=== PATIENT | female | born 1940 ===

== ENCOUNTER 2020-09-04 19:27 | Inpatient (IN) | payer MEDICARE ==
[~2020-09-04] VITALS: Ht 167 cm; Wt 71.1 kg
[2020-09-04] MEDS ORDERED: NS IV 1000 ML 1,000 ML ONE (22:51)
--- NOTE | 2020-09-04 23:19 | Tele-ICU Consult ---
History of Present Illness History of Present Illness Date Seen by Provider: Sep 04, 2020 Time Seen by Provider: 23:14 Date of Admission 80 yo F admitted from OSH. Has weakness, LGI bleed, BRB, taking Eliquis for a fib, Has COPD, surgery to see in am, Hb was 14, no hypotension WBC 15k Hx of GI bleed 18 years ago, Hx of bleeding ulcer, needed 4U of blood No associated pain but has been having diarrhea lately Allergies and Home Medications Allergies Coded Allergies: Penicillins (Verified Allergy, Unknown, 09/04/20) Sulfa (Sulfonamide Antibiotics) (Verified Allergy, Unknown, 09/04/20) Tetanus Vaccines and Toxoid (Verified Allergy, Unknown, 09/04/20) acetaminophen (Verified Allergy, Unknown, 09/04/20) cephalexin (Verified Allergy, Unknown, 09/04/20) ibuprofen (Verified Allergy, Unknown, 09/04/20) warfarin (Verified Allergy, Unknown, 09/04/20) Past Medical/Social/Family Hx Patient Social History Tobacco Use?: No Smoking Status: Never a Smoker Smokeless Tobacco Frequency: Never a User Use of E-Cig and/or Vaping dev: No Substance use?: No Alcohol Use?: No Pt stated abuse/neglect: No Immunizations Up To Date Influenza Vaccine Up-to-Date: No; Not Current Current Status status: No Advance Directives: No Communicates: Verbally Primary Language: Venezuelan Preferred Spoken Language: Venezuelan Is interpretation needed?: No Sensory deficits: Vision impairment Implanted or Applied Medical D: Orthopedic hardware Review of Systems Gastrointestinal: diarrhea Sepsis Event Evaluation Height, Weight, BMI Height: '" Weight: lbs. oz. kg; 25.09 BMI Method: Exam Exam Patient acknowledged, consented, and participated in this virtual visit which was conducted using real time audio/video Height & Weight Height: '" Weight: lbs. oz. kg; 25.09 BMI Method: Cardiovascular: Regular Rate, Rhythm Gastrointestinal: normal bowel sounds, non tender, soft Neurologic/Psychiatric: Alert, Oriented x3 Assessment/Plan Assessment/Plan BPB per rectum, surgery to see re:colonoscopy, will monitor for further bleeding and monitor Hb JACQUI CHARLES MD Sep 04, 2020 23:19
[2020-09-04] MEDS: NS IV 1000 ML 1,000 ML IV SCH (23:50)
[2020-09-05] MEDS ORDERED: RT-ALBUTEROL SULF 2.5 MG/3 ML PRE-MIX VIAL INH PRN (00:45)
[2020-09-05] MEDS ORDERED: RT-ALBUTEROL SULF 2.5 MG/3 ML PRE-MIX VIAL INH SCH (02:00)
[2020-09-05 04:16] LABS: BASOPHILS # (AUTO) 0.1 10^3/uL (0.0-0.1); BASOPHILS % (AUTO) 1 % (0-10); EOSINOPHILS # (AUTO) 0.1 10^3/uL (0.0-0.3); EOSINOPHILS % (AUTO) 1 % (0-10); HEMATOCRIT 46 % (35-52); HEMOGLOBIN 14.9 g/dL (11.5-16.0); LYMPHOCYTES % (AUTO) 14 % (12-44); MEAN CORPUSCULAR HEMOGLOBIN 31 pg (25-34); MEAN CORPUSCULAR HGB CONC 33 g/dL (32-36); MEAN CORPUSCULAR VOLUME 96 fL (80-99); MEAN PLATELET VOLUME 10.8 fL (9.0-12.2); MONOCYTES # (AUTO) 0.9 10^3/uL (0.0-1.0); MONOCYTES % (AUTO) 6 % (0-12); NEUTROPHILS # (AUTO) 11.5 10^3/uL (1.8-7.8); NEUTROPHILS % (AUTO) 79 % (42-75); PLATELET COUNT 210 10^3/uL (130-400); WHITE BLOOD COUNT 14.5 10^3/uL (4.3-11.0)
[2020-09-05] MEDS ORDERED: POTASSIUM CL 10MEQ/50ML IVPB 50 ML IV SCH (06:00)
[2020-09-05] MEDS ORDERED: MAGNESIUM 1 GM/100 ML IVPB 100 ML IV SCH (06:00)
[2020-09-05] MEDS ORDERED: KCL 20 MEQ TAB (K-DUR) PO SCH (06:00)
[2020-09-05] MEDS: NS IV 1000 ML 1,000 ML IV SCH ×3 (06:23→17:33)
[2020-09-05 06:57] LABS: CHLORIDE 103 MMOL/L (98-107); POTASSIUM 3.9 MMOL/L (3.6-5.0); SODIUM 134 MMOL/L (135-145)
[2020-09-05 06:58] LABS: CALCIUM 7.7 MG/DL (8.5-10.1)
[2020-09-05 06:59] LABS: GLUCOSE 96 MG/DL (70-105)
[2020-09-05 07:00] LABS: CARBON DIOXIDE 21 MMOL/L (21-32)
[2020-09-05 07:03] LABS: CREATININE SERUM 0.69 MG/DL (0.60-1.30); GFR ESTIMATED > 60; PHOSPHORUS 2.6 MG/DL (2.3-4.7)
[2020-09-05 07:04] LABS: BUN/CREATININE RATIO 16
[2020-09-05 07:05] LABS: MAGNESIUM 1.6 MG/DL (1.6-2.4)
[2020-09-05] MEDS ORDERED: RT-BUDESONIDE NEBS 0.5 MG/2ML (PULMICORT) AMP INH SCH (08:00)
[2020-09-05] MEDS ORDERED: ARFORMOTEROL 15 MCG/2 ML (BROVANA) INH SOLUTIION IH SCH (08:00)
--- NOTE | 2020-09-05 08:38 | Tele-ICU Progress Note ---
Subjective Date Seen by a Provider: Sep 05, 2020 Time Seen by a Provider: 08:33 Subjective/Events-last exam Patient with history of atrial fibrillation on anticoagulant therapy admitted with bright red blood per rectum. Her hemoglobin is stable at the. She continues to have bleeding per rectum but it is slowed down per her. Patient has a mild cramps in the abdomen. General surgeon was consulted for possible colonoscopy. She denies any dizziness. I have made a video visit and discussed with the patient as well as the bedside RN. There is no previous history of peptic ulcer disease or gastritis or any previous history of gastrointestinal bleeding. No history of cirrhosis of the liver. Sepsis Event Evaluation Height, Weight, BMI Height: '" Weight: lbs. oz. kg; 25.09 BMI Method: Exam Exam Patient acknowledged, consented, and participated in this virtual visit which was conducted using real time audio/video Vital Signs Date Time Temp Pulse Resp B/P (MAP) Pulse Ox O2 Delivery O2 Flow Rate FiO2 09/05/20 08:12 98 Room Air 09/05/20 08:10 36.9 09/05/20 08:00 87 19 98 Room Air 09/05/20 07:00 93 19 149/93 (111) 97 Room Air 09/05/20 07:00 113 09/05/20 06:00 84 12 151/84 (106) 96 Room Air 09/05/20 05:00 89 20 151/97 (115) 95 Room Air 09/05/20 04:00 Room Air 09/05/20 04:00 86 17 151/96 (114) 95 Room Air 09/05/20 03:00 98 20 144/94 (111) 94 Room Air 09/05/20 02:00 96 12 153/96 (115) 95 Room Air 09/05/20 01:00 91 09/05/20 01:00 91 18 138/83 (101) 93 Room Air 09/05/20 00:41 98 21 09/05/20 00:00 109 12 149/112 (124) 95 Room Air 09/05/20 00:00 Room Air 09/04/20 23:45 101 10 152/94 (113) 96 Room Air 09/04/20 23:30 108 20 172/96 (121) 92 Room Air 09/04/20 23:15 96 12 177/119 (138) 96 Room Air 09/04/20 23:00 102 12 170/115 (133) 93 Room Air 09/04/20 22:54 123 09/04/20 22:53 36.4 112 16 180/106 (130) 95 Room Air I & O 09/05/20 07:00 Intake Total 0 ml Output Total 600 ml Balance -600 ml Height & Weight Height: '" Weight: lbs. oz. kg; 25.09 BMI Method: General Appearance: No Apparent Distress Cardiovascular: Regular Rate, Rhythm Gastrointestinal: normal bowel sounds, non tender, soft Neurologic/Psychiatric: Alert, Oriented x3 Other comments ros per attending Results Lab Laboratory Tests 09/05/20 03:35 09/05/20 05:58 Meds reviewed Assessment/Plan Assessment/Plan 1. Lower GI bleeding. 2. History of chronic anticoagulation 3. History of atrial fibrillation. Recommendations 1. We will start on IV Protonix in case patient has any component of upper GI source. 2. We will repeat a CBC this a.m. 3. General surgery consultation has been requested. 4. Discussed with the patient and bedside RN Time spent with patient (mins): 25 JULIA PASTOR MD Sep 05, 2020 08:38
[2020-09-05] MEDS: DIGOXIN 0.25 MG (LANOXIN) TAB PO SCH (08:41)
[2020-09-05] MEDS: PANTOPRAZOLE 40 MG (PROTONIX) VIAL IV SCH (08:57)
[2020-09-05] MEDS ORDERED: APIX2.5T PO (10:46)
[2020-09-05] MEDS ORDERED: MULT-985 PO (10:46)
[2020-09-05] MEDS ORDERED: DILT120C53 PO (10:46)
[2020-09-05] MEDS ORDERED: LISI10TA25 PO (10:46)
[2020-09-05] MEDS ORDERED: RT-ALBUINH INH (10:46)
[2020-09-05] MEDS ORDERED: DIGO250T3 PO ×2 (10:46)
[2020-09-05] MEDS ORDERED: BUDE10.2 IH ×2 (10:46→10:53)
[2020-09-05] MEDS ORDERED: BUDE10.22 IH (10:49)
--- NOTE | 2020-09-05 11:11 | History & Physical-Hospitalist ---
ELIZABETH SIERRA MED STUDENT 09/05/20 1111: History of Present Illness HPI/Chief Complaint This is a 80 YO female with history of COPD, HTN, and Afib who came to the [place] [facility] for bloody BM's. Pt states yesterday morning when she was getting her hair done, she became dizzy and went to the bathroom, where she had non-bloody diarrhea. Later in the afternoon she had a BM that was gross blood with some clots in it. She later had another bloody BM and went to the [place] [facility] after that. Hbg there was stable at 14.4. Beds were full in [place], so she was transf ered here. She is on Eliquis for her Afib. She had an episode of a bleeding ulcer about 15 years ago that required transfusion of 4 units of blood. Had a colonoscopy a few years ago that was negative. No history of hemorrhoids, but over the past couple of weeks, has had some epsodes of constipation and straining with BM's. No fever, chills, nausea, vomiting, or abdominal pain. Says she had a BM this morning with blood in it. Source: patient, RN/MD, other ([place] [facility] records) Exam Limitations: no limitations Date Seen 09/05/20 Time Seen by a Provider: 08:45 Attending Physician Heri Zelaya MD PCP Referring Physician Date of Admission Sep 04, 2020 at 22:47 Home Medications & Allergies Home Medications Reviewed patient Home Medication Reconciliation performed by pharmacy medication reconciliations indoor plant technician and/or nursing. Patients Allergies have been reviewed. Allergies Allergies Coded Allergies Penicillins (Verified Allergy, Unknown, 09/04/20) Sulfa (Sulfonamide Antibiotics) (Verified Allergy, Unknown, 09/04/20) Tetanus Vaccines and Toxoid (Verified Allergy, Unknown, 09/04/20) acetaminophen (Verified Allergy, Unknown, 09/04/20) cephalexin (Verified Allergy, Unknown, 09/04/20) ibuprofen (Verified Allergy, Unknown, 09/04/20) warfarin (Verified Allergy, Unknown, 09/04/20) Past Pllzozh-Mdyajt-Hzswrl Hx Patient Social History Tobacco Use?: No Smoking Status: Never a Smoker Smokeless Tobacco Frequency: Never a User Use of E-Cig and/or Vaping dev: No Substance use?: No Alcohol Use?: No Pt feels they are or have been: No Current Status status: No Advance Directives: No Communicates: Verbally Primary Language: Portuguese Preferred Spoken Language: Portuguese Is interpretation needed?: No Sensory deficits: Vision impairment Implanted or Applied Medical D: Orthopedic hardware Past Medical History COPD Atrial Fibrillation, Hypertension Review of Systems Constitutional: No chills, No fever EENTM: no symptoms reported Respiratory: No cough, No dyspnea on exertion Cardiovascular: No chest pain Gastrointestinal: diarrhea; No vomiting Genitourinary: no symptoms reported Musculoskeletal: no symptoms reported Skin: no symptoms reported Psychiatric/Neurological: No Symptoms Reported All Other Systems Reviewed Negative Unless Noted: Yes (Negative excepted noted.) Physical Exam Physical Exam Vital Signs Vital Signs - First Documented 09/04/20 09/05/20 22:53 00:41 Temp 36.4 Pulse 112 Resp 16 B/P (MAP) 180/106 (130) Pulse Ox 95 O2 Delivery Room Air FiO2 21 Capillary Refill : Height, Weight, BMI Height: '" Weight: lbs. oz. kg; 25.09 BMI Method: General Appearance: No Apparent Distress, WD/WN Respiratory: Lungs Clear, Normal Breath Sounds, No Accessory Muscle Use, No Respiratory Distress Cardiovascular: No Murmur, Irregularly Irregular, Other (borderline tachycardic) Gastrointestinal: Non Tender, Soft Extremity: Non Tender, No Pedal Edema Neurologic/Psychiatric: Alert, Oriented x3, No Motor/Sensory Deficits, Normal Mood/Affect Skin: Normal Color, Warm/Dry Results Results/Procedures Labs Laboratory Tests 09/05/20 03:35 09/05/20 05:58 09/05/20 11:25 Patient resulted labs reviewed. Assessment/Plan Admission Diagnosis GI bleed Admission Status: Inpatient Order (span 2 midnights) Assessment and Plan GI bleed consult Dr. Dill hgb stable, continue to monitor Atrial fibrillation hold Eliquis continue home cardiazem and digoxin COPD HTN Protonix for GI prophylaxis SHERIE ALCANTAR MD 09/05/20 1150: Past Stkbphh-Xhsfqn-Lbfokj Hx Family Medical History No Pertinent Family Hx Assessment/Plan Admission Diagnosis Admission Status: Inpatient Order (span 2 midnights) Reason for Inpatient Admission: GI bleed requiring endoscopic evaluation Assessment and Plan New onset bright red blood per rectum, ongoing since admission. Hemoglobin within normal limits, no indication for transfusion at this time. Continue to monitor. Surgery consulted, await plan regarding endoscopic evaluation. Diagnosis/Problems Diagnosis/Problems (1) BRBPR (bright red blood per rectum) Status: Acute (2) Afib Status: Chronic Qualifiers: Atrial fibrillation type: permanent Qualified Codes: I48.21 - Permanent atrial fibrillation (3) HTN (hypertension) Status: Chronic Qualifiers: Hypertension type: essential hypertension Qualified Codes: I10 - Essential (primary) hypertension (4) COPD (chronic obstructive pulmonary disease) Status: Chronic Qualifiers: COPD type: chronic bronchitis Chronic bronchitis type: unspecified Qualified Codes: J42 - Unspecified chronic bronchitis Supervisory-Addendum Brief Verification & Attestation Participated in pt care: history, MDM, physical Personally performed: exam, history, MDM, supervision of care Care discussed with: Medical Student Procedures: n/a Results interpretation: Verified all documentation A medical student performed and documented this service. I then reviewed and verified all information documented by the medical student and made modifications to such information, when appropriate. I personally performed a history, physical exam, and performed medical decision making. ELIZABETH SIERRA MED STUDENT Sep 05, 2020 11:11 SHERIE ALCANTAR MD Sep 05, 2020 11:50
[2020-09-05 11:40] LABS: HEMATOCRIT 42 % (35-52); HEMOGLOBIN 14.2 g/dL (11.5-16.0); MEAN CORPUSCULAR HEMOGLOBIN 33 pg (25-34); MEAN CORPUSCULAR HGB CONC 34 g/dL (32-36); MEAN CORPUSCULAR VOLUME 97 fL (80-99); MEAN PLATELET VOLUME 10.5 fL (9.0-12.2); PLATELET COUNT 229 10^3/uL (130-400); WHITE BLOOD COUNT 13.4 10^3/uL (4.3-11.0)
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
[2020-09-05] MEDS ORDERED: MELATONIN 3 MG TABLET PO PRN (22:15)
[2020-09-05] MEDS ORDERED: ANTACID SUSP 30 ML UDC (MYLANTA) PO PRN (22:15)
[2020-09-05] MEDS ORDERED: ONDANSETRON 4 MG/2 ML (SDV) Z0FRAN IV PRN (22:15)
[2020-09-05] MEDS ORDERED: ONDANSETRON 4 MG (ZOFRAN) ORAL DISSOLVE TAB PO PRN (22:15)
[2020-09-06] MEDS: NS IV 1000 ML 1,000 ML IV SCH ×3 (05:34→23:25)
[2020-09-06 06:55] LABS: BASOPHILS # (AUTO) 0.1 10^3/uL (0.0-0.1); BASOPHILS % (AUTO) 0 % (0-10); EOSINOPHILS # (AUTO) 0.3 10^3/uL (0.0-0.3); EOSINOPHILS % (AUTO) 2 % (0-10); HEMATOCRIT 45 % (35-52); HEMOGLOBIN 14.8 g/dL (11.5-16.0); LYMPHOCYTES # (AUTO) 2.3 10^3/uL (1.0-4.0); LYMPHOCYTES % (AUTO) 17 % (12-44); MEAN CORPUSCULAR HEMOGLOBIN 32 pg (25-34); MEAN CORPUSCULAR HGB CONC 33 g/dL (32-36); MEAN CORPUSCULAR VOLUME 96 fL (80-99); MEAN PLATELET VOLUME 10.9 fL (9.0-12.2); MONOCYTES # (AUTO) 1.1 10^3/uL (0.0-1.0); MONOCYTES % (AUTO) 8 % (0-12); NEUTROPHILS # (AUTO) 9.5 10^3/uL (1.8-7.8); NEUTROPHILS % (AUTO) 72 % (42-75); PLATELET COUNT 258 10^3/uL (130-400); WHITE BLOOD COUNT 13.2 10^3/uL (4.3-11.0)
[2020-09-06 07:23] LABS: CHLORIDE 106 MMOL/L (98-107); SODIUM 138 MMOL/L (135-145)
[2020-09-06 07:24] LABS: CALCIUM 7.9 MG/DL (8.5-10.1)
[2020-09-06 07:25] LABS: GLUCOSE 90 MG/DL (70-105)
[2020-09-06 07:26] LABS: CARBON DIOXIDE 20 MMOL/L (21-32)
[2020-09-06 07:28] LABS: PHOSPHORUS 2.1 MG/DL (2.3-4.7)
[2020-09-06 07:29] LABS: CREATININE SERUM 0.67 MG/DL (0.60-1.30); GFR ESTIMATED > 60
[2020-09-06 07:30] LABS: BUN/CREATININE RATIO 15
[2020-09-06 07:31] LABS: MAGNESIUM 1.6 MG/DL (1.6-2.4)
[2020-09-06] MEDS: RT-BUDESONIDE NEBS 0.5 MG/2ML (PULMICORT) AMP INH SCH (07:42)
[2020-09-06] MEDS ORDERED: POT PHOS/NA PHOS (K-PHOS NEUTRAL) PO ONE (08:00)
[2020-09-06] MEDS: PANTOPRAZOLE 40 MG (PROTONIX) VIAL IV SCH (08:17)
[2020-09-06] MEDS: MAGNESIUM 1 GM/100 ML IVPB 100 ML IV SCH ×2 (08:17→10:41)
[2020-09-06] MEDS: DIGOXIN 0.25 MG (LANOXIN) TAB PO SCH (08:18)
--- NOTE | 2020-09-06 09:26 | Progress Note - Surgery ---
LEONARD MONTOYA MED STUDENT 09/06/20 0926: Subjective Date Seen by a Provider: Sep 06, 2020 Time Seen by a Provider: 08:20 Subjective/Events-last exam Patient is 80 year old female being followed for bloody diarrhea. Today she reports she is feeling "fine". She reports no pain, nause, vomitting, changes in urinary habits. She states her last bm "yesterday" did not have visible blood. She did notice a small amount of bloody drainage this morning. Objective Exam Vital Signs Date Time Temp Pulse Resp B/P (MAP) Pulse Ox O2 Delivery O2 Flow Rate FiO2 09/06/20 07:25 37.2 70 22 120/76 (91) 96 Room Air 09/06/20 04:37 36.4 83 18 139/70 (93) 95 Room Air 09/06/20 00:00 36.8 95 Room Air 09/05/20 23:15 98 25 148/73 (98) Room Air 09/05/20 21:00 96 Room Air 09/05/20 19:34 37.0 74 18 143/79 (100) 94 Room Air 09/05/20 19:00 84 09/05/20 17:00 77 17 152/81 (104) 98 Room Air 09/05/20 16:20 97 Room Air 09/05/20 16:00 73 17 97 Room Air 09/05/20 15:51 36.8 09/05/20 15:00 79 18 129/74 (92) 97 Room Air 09/05/20 14:00 65 27 138/78 (98) 92 Room Air 09/05/20 13:00 101 20 141/86 (104) 91 Room Air 09/05/20 13:00 78 09/05/20 12:00 95 Room Air 09/05/20 12:00 76 17 141/77 (98) 95 Room Air 09/05/20 11:44 36.4 09/05/20 11:00 93 15 147/84 (105) 91 Room Air 09/05/20 10:00 92 19 146/103 (117) 95 Room Air I & O 09/06/20 07:00 Intake Total 3025 ml Output Total 1550 ml Balance 1475 ml Capillary Refill : General Appearance: No Apparent Distress, WD/WN Respiratory: Lungs Clear, Normal Breath Sounds, No Accessory Muscle Use, No Respiratory Distress Cardiovascular: No Murmur, Irregularly Irregular Peripheral Pulses: 2+ Radial Pulses (R), 2+ Radial Pulses (L) Gastrointestinal: normal bowel sounds, non tender, soft, no organomegaly, no pulsatile mass Extremity: Non Tender, No Pedal Edema Neurologic/Psychiatric: Alert, Oriented x3, No Motor/Sensory Deficits, Normal Mood/Affect Skin: Normal Color, Warm/Dry Results Lab Laboratory Tests 09/05/20 11:25: White Blood Count 13.4H, Red Blood Count 4.37, Hemoglobin 14.2, Hematocrit 42, Mean Corpuscular Volume 97, Mean Corpuscular Hemoglobin 33, Mean Corpuscular Hemoglobin Concent 34, Red Cell Distribution Width 12.9, Platelet Count 229, Mean Platelet Volume 10.5 09/06/20 06:35: White Blood Count 13.2H, Red Blood Count 4.66, Hemoglobin 14.8, Hematocrit 45, Mean Corpuscular Volume 96, Mean Corpuscular Hemoglobin 32, Mean Corpuscular Hemoglobin Concent 33, Red Cell Distribution Width 12.9, Platelet Count 258, Mean Platelet Volume 10.9, Immature Granulocyte % (Auto) 0, Neutrophils (%) (Auto) 72, Lymphocytes (%) (Auto) 17, Monocytes (%) (Auto) 8, Eosinophils (%) (Auto) 2, Basophils (%) (Auto) 0, Neutrophils # (Auto) 9.5H, Lymphocytes # (Auto) 2.3, Monocytes # (Auto) 1.1H, Eosinophils # (Auto) 0.3, Basophils # (Auto) 0.1, Immature Granulocyte # (Auto) 0.0, Sodium Level 138, Potassium Level 4.0, Chloride Level 106, Carbon Dioxide Level 20L, Anion Gap 12, Blood Urea Nitrogen 10, Creatinine 0.67, Estimat Glomerular Filtration Rate > 60, BUN/C reatinine Ratio 15, Glucose Level 90, Calcium Level 7.9L, Phosphorus Level 2.1L, Magnesium Level 1.6 Assessment/Plan Assessment/Plan Assessment/Plan Rectal bleeding diarrhea a-fib COPD Hold eliquis full diet tonight, clear liquid after midnight GI Prophylaxis Continue home meds repeat CBC/CMP am Patients hemoglobin has been stable (14.9, 14.2, 14.8 today), will recheck tomorrow, patient expressed desire for upper and lower endoscopy during this hospital stay, if possible start prep and plan for tomorrow, if not schedule out patient procedure. LB MARISCAL DO 09/06/20 1315: Subjective Time Seen by a Provider: 10:11 Subjective/Events-last exam Pt seen and examined, states no changes today and denies abdominal pain. She wants to have the endoscopies while she is in the hospital because she is worried about time delay if she goes home and tries to schedule them. Review of Systems General: No Chills, No Night Sweats Pulmonary: No Dyspnea, No Cough Cardiovascular: No: Chest Pain, Palpitations Gastrointestinal: No: Nausea, Vomiting, Abdominal Pain Objective Exam General Appearance: No Apparent Distress, WD/WN Respiratory: Lungs Clear, Normal Breath Sounds, No Accessory Muscle Use, No Respiratory Distress Cardiovascular: No Murmur, Irregularly Irregular Gastrointestinal: normal bowel sounds, non tender, soft, no organomegaly, no pulsatile mass Extremity: Non Tender, No Pedal Edema Neurologic/Psychiatric: Alert, Oriented x3 Skin: Normal Color, Warm/Dry Assessment/Plan Assessment/Plan Assessment/Plan Rectal bleeding Diarrhea Atrial Fibrillation COPD Eliquis is being held and will start colonoscopy prep today, NPO after midnight and will get consent for EGD and colonoscopy. Went over risks and complications not limited to pain, bleeding, infection and even intestinal perforation. The benefit is to hopefully determine cause of rectal bleed. GI Prophylaxis, Continue home meds. No need to repeat labs at this time. Supervisory-Addendum Brief Verification & Attestation Participated in pt care: history, MDM, physical Personally performed: exam, history, MDM, supervision of care Care discussed with: Medical Student Procedures: n/a Verification and Attestation of Medical Student E/M Service A medical student performed and documented this service. I then reviewed and verified all information documented by the medical student and made modifications to such information, when appropriate. I personally performed a physical exam, medical decision making and then discussed any differences between the notes and made revisions as necessary to create one note. Lb Mariscal , 09/06/20 , 13:15 LEONARD MONTOYA MED STUDENT Sep 06, 2020 09:26 LB MARISCAL DO Sep 06, 2020 13:15
--- NOTE | 2020-09-06 13:00 | Progress Note - Hospitalist ---
Subjective HPI/CC On Admission Date Seen by Provider: Sep 06, 2020 Time Seen by Provider: 10:35 Subjective/Events-last exam She is feeling better today. She had a bowel movement with no blood. She would like to proceed with endoscopies. Objective Exam Vital Signs Vital Signs Date Time Temp Pulse Resp B/P (MAP) Pulse Ox O2 Delivery O2 Flow Rate FiO2 09/06/20 11:36 36.7 77 20 158/91 (113) 93 Room Air 09/05/20 00:41 21 Capillary Refill : General Appearance: No Apparent Distress, WD/WN Respiratory: Lungs Clear, Normal Breath Sounds, No Respiratory Distress Cardiovascular: Regular Rate, Rhythm, No Edema, No Murmur Gastrointestinal: Normal Bowel Sounds, Non Tender, Soft Extremity: Normal Inspection, Non Tender, No Pedal Edema Neurologic/Psychiatric: Alert, Oriented x3, No Motor/Sensory Deficits, Normal Mood/Affect Skin: Normal Color, Warm/Dry Results/Procedures Lab Laboratory Tests 09/06/20 06:35 Patient resulted labs reviewed. Assessment/Plan Assessment and Plan Assess & Plan/Chief Complaint Hematochezia Hemoglobin normal, stable Now resolved Surgery consulted, appreciate assistance Planning for EGD/colonoscopy tomorrow Permanent atrial fibrillation Continue digoxin and diltiazem Hold Eliquis Hypertension COPD Continue home meds DVT prophylaxis: Held due to GI bleeding Diagnosis/Problems Diagnosis/Problems (1) BRBPR (bright red blood per rectum) Status: Acute (2) Afib Status: Chronic Qualifiers: Atrial fibrillation type: permanent Qualified Codes: I48.21 - Permanent atrial fibrillation (3) HTN (hypertension) Status: Chronic Qualifiers: Hypertension type: essential hypertension Qualified Codes: I10 - Essential (primary) hypertension (4) COPD (chronic obstructive pulmonary disease) Status: Chronic Qualifiers: COPD type: chronic bronchitis Chronic bronchitis type: unspecified Qualified Codes: J42 - Unspecified chronic bronchitis SHERIE ALCANTAR MD Sep 06, 2020 13:00
[2020-09-06] MEDS ORDERED: BISACODYL 5 MG (DULCOLAX) TABLET PO SCH (15:00)
[2020-09-06] MEDS ORDERED: polyethylene glycoL Bowel Prep(MIRALAX) 238 GM PO SCH (18:00)
[2020-09-07 06:46] LABS: BASOPHILS # (AUTO) 0.1 10^3/uL (0.0-0.1); BASOPHILS % (AUTO) 1 % (0-10); EOSINOPHILS # (AUTO) 0.5 10^3/uL (0.0-0.3); EOSINOPHILS % (AUTO) 5 % (0-10); HEMATOCRIT 42 % (35-52); HEMOGLOBIN 13.8 g/dL (11.5-16.0); LYMPHOCYTES # (AUTO) 1.8 10^3/uL (1.0-4.0); LYMPHOCYTES % (AUTO) 19 % (12-44); MEAN CORPUSCULAR HEMOGLOBIN 31 pg (25-34); MEAN CORPUSCULAR HGB CONC 33 g/dL (32-36); MEAN CORPUSCULAR VOLUME 95 fL (80-99); MEAN PLATELET VOLUME 11.1 fL (9.0-12.2); MONOCYTES # (AUTO) 0.8 10^3/uL (0.0-1.0); MONOCYTES % (AUTO) 9 % (0-12); NEUTROPHILS # (AUTO) 6.2 10^3/uL (1.8-7.8); NEUTROPHILS % (AUTO) 66 % (42-75); PLATELET COUNT 253 10^3/uL (130-400); WHITE BLOOD COUNT 9.4 10^3/uL (4.3-11.0)
[2020-09-07 06:51] LABS: CHLORIDE 109 MMOL/L (98-107); POTASSIUM 3.6 MMOL/L (3.6-5.0); SODIUM 139 MMOL/L (135-145)
[2020-09-07 06:52] LABS: CALCIUM 7.7 MG/DL (8.5-10.1)
[2020-09-07 06:53] LABS: GLUCOSE 93 MG/DL (70-105)
[2020-09-07 06:54] LABS: CARBON DIOXIDE 22 MMOL/L (21-32)
--- NOTE | 2020-09-07 06:54 | Progress Note - Hospitalist ---
Subjective HPI/CC On Admission Date Seen by Provider: Sep 07, 2020 Objective Exam Vital Signs Vital Signs Date Time Temp Pulse Resp B/P (MAP) Pulse Ox O2 Delivery O2 Flow Rate FiO2 09/07/20 17:26 09/07/20 15:27 95 Room Air 09/07/20 12:37 35.7 85 20 09/07/20 11:50 10 09/05/20 00:41 21 Capillary Refill : Results/Procedures Lab Laboratory Tests 09/07/20 05:44 Patient resulted labs reviewed. TRENT PARRA DO Sep 07, 2020 06:54
[2020-09-07 06:56] LABS: CREATININE SERUM 0.62 MG/DL (0.60-1.30); GFR ESTIMATED > 60; PHOSPHORUS 2.5 MG/DL (2.3-4.7)
[2020-09-07 06:57] LABS: BUN/CREATININE RATIO 8
[2020-09-07 06:59] LABS: MAGNESIUM 1.8 MG/DL (1.6-2.4)
[2020-09-07 07:02] LABS: ALBUMIN 2.7 GM/DL (3.2-4.5)
[2020-09-07 07:05] LABS: TOTAL PROTEIN 5.4 GM/DL (6.4-8.2)
[2020-09-07 07:07] LABS: BILIRUBIN,TOTAL 0.9 MG/DL (0.1-1.0)
[2020-09-07 07:10] LABS: BILIRUBIN,DIRECT 0.4 MG/DL (0.0-0.3); BILIRUBIN,INDIRECT 0.5 MG/DL
[2020-09-07] MEDS: RT-BUDESONIDE NEBS 0.5 MG/2ML (PULMICORT) AMP INH SCH (08:41)
--- NOTE | 2020-09-07 09:19 | Progress Note - Surgery ---
LEONARD MONTOYA MED STUDENT 09/07/20 0919: Subjective Date Seen by a Provider: Sep 07, 2020 Time Seen by a Provider: 07:40 Subjective/Events-last exam Patient is 80 year old female being followed for bloody diarrhea. Her only complaint this morning is she had a headache overnight and had difficulty sleeping. She has completed her prep and has been only having sips of water to keep her mouth from being "too dry". She does report some crampy abdominal pain, that has been associated with bowel movements, she reports no blood in stools. Review of Systems General: No Chills, No Night Sweats HEENT: Head Aches; No Visual Changes Pulmonary: No Dyspnea, No Cough Cardiovascular: No: Chest Pain, Palpitations Gastrointestinal: Diarrhea; No: Nausea, Vomiting Genitourinary: No Dysuria, No Frequency Musculoskeletal: other (baseline arthralgias) Neurological: No: Weakness, Numbness Objective Exam Vital Signs Date Time Temp Pulse Resp B/P (MAP) Pulse Ox O2 Delivery O2 Flow Rate FiO2 09/07/20 08:41 95 Room Air 09/07/20 07:33 36.5 89 20 134/82 (99) 96 Room Air 09/07/20 04:51 36.3 90 18 143/66 (91) 94 Room Air 09/07/20 00:01 36.3 90 18 143/66 (91) 94 Room Air 09/06/20 20:26 96 Room Air 09/06/20 19:37 35.6 85 20 137/84 (101) 96 Room Air 09/06/20 15:22 36.8 75 18 149/82 (104) 95 Room Air 09/06/20 11:36 36.7 77 20 158/91 (113) 93 Room Air I & O 09/07/20 07:00 Intake Total 2750 ml Output Total 1750 ml Balance 1000 ml Capillary Refill : General Appearance: No Apparent Distress, WD/WN Respiratory: Lungs Clear, Normal Breath Sounds, No Accessory Muscle Use, No Respiratory Distress Cardiovascular: No Murmur, Irregularly Irregular Peripheral Pulses: 2+ Radial Pulses (R), 2+ Radial Pulses (L) Gastrointestinal: non tender, soft, no organomegaly, no pulsatile mass, abnorma l bowel sounds (hyperactive) Extremity: Non Tender, No Pedal Edema Neurologic/Psychiatric: Alert, Oriented x3 Skin: Normal Color, Warm/Dry Results Lab Laboratory Tests 09/06/20 23:20: Influenza Type A (RT-PCR) Not Detected, Influenza Type B (RT-PCR) Not Detected, SARS-CoV-2 RNA (RT-PCR) Not Detected 09/07/20 05:44: White Blood Count 9.4, Red Blood Count 4.39, Hemoglobin 13.8, Hematocrit 42, Mean Corpuscular Volume 95, Mean Corpuscular Hemoglobin 31, Mean Corpuscular Hemoglobin Concent 33, Red Cell Distribution Width 12.9, Platelet Count 253, Mean Platelet Volume 11.1, Immature Granulocyte % (Auto) 0, Neutrophils (%) (Auto) 66, Lymphocytes (%) (Auto) 19, Monocytes (%) (Auto) 9, Eosinophils (%) (Auto) 5, Basophils (%) (Auto) 1, Neutrophils # (Auto) 6.2, Lymphocytes # (Auto) 1.8, Monocytes # (Auto) 0.8, Eosinophils # (Auto) 0.5H, Basophils # (Auto) 0.1, Immature Granulocyte # (Auto) 0.0, Sodium Level 139, Potassium Level 3.6, Chloride Level 109H, Carbon Dioxide Level 22, Anion Gap 8, Blood Urea Nitrogen 5L, Creatinine 0.62, Estimat Glomerular Filtration Rate > 60, BUN/Creatinine Ratio 8, Glucose Level 93, Calcium Level 7.7L, Phosphorus Level 2.5, Magnesium Level 1.8, Total Bilirubin 0.9, Direct Bilirubin 0.4H, Indirect Bilirubin 0.5, Aspartate Amino Transf (AST/SGOT) 18, Alanine Aminotransferase (ALT/SGPT) 12, Alkaline Phosphatase 71, Total Protein 5.4L, Albumin 2.7L Assessment/Plan Assessment/Plan Assessment/Plan Rectal bleeding Diarrhea Atrial Fibrillation COPD Eliquis is being held patient will have EGD on colonoscopy done today. Went over risks and complications not limited to pain, bleeding, infection and even intestinal perforation. The benefit is to hopefully determine cause of rectal bleed. GI Prophylaxis, Continue home meds. Plan to discharge today after procedure. LB MARISCAL DO 09/07/20 1051: Subjective Time Seen by a Provider: 10:39 Subjective/Events-last exam Pt seen and examined, states she is having clear BM's. She denies abdominal pain and is ready for endoscopies. Review of Systems General: No Chills, No Night Sweats HEENT: Head Aches; No Visual Changes Pulmonary: No Dyspnea, No Cough Cardiovascular: No: Chest Pain, Palpitations Gastrointestinal: Diarrhea; No: Nausea, Vomiting Objective Exam General Appearance: No Apparent Distress, WD/WN Respiratory: Lungs Clear, Normal Breath Sounds, No Accessory Muscle Use, No Respiratory Distress Cardiovascular: No Murmur, Irregularly Irregular Gastrointestinal: non tender, soft, no organomegaly, no pulsatile mass Extremity: Non Tender, No Pedal Edema Neurologic/Psychiatric: Alert, Oriented x3 Assessment/Plan Assessment/Plan Assessment/Plan Rectal bleeding Diarrhea Atrial Fibrillation COPD Eliquis was held; patient scheduled for EGD and colonoscopy today. Went over risks and complications not limited to pain, bleeding, infection and even intestinal perforation. The benefit is to hopefully determine cause of rectal bleed. GI Prophylaxis, Continue home meds. Plan to discharge today after procedure and can eat regular diet after procedure. Supervisory-Addendum Brief Verification & Attestation Participated in pt care: history, MDM, physical Personally performed: exam, history, MDM, supervision of care Care discussed with: Medical Student Procedures: n/a Verification and Attestation of Medical Student E/M Service A medical student performed and documented this service. I then reviewed and verified all information documented by the medical student and made modifications to such information, when appropriate. I personally performed a physical exam, medical decision making and then discussed any differences between the notes and made revisions as necessary to create one note. Lb Mariscal , 09/07/20 , 10:51 LEONARD MONTOYA MED STUDENT Sep 07, 2020 09:19 LB MARISCAL DO Sep 07, 2020 10:51
[2020-09-07] MEDS ORDERED: LACTATED RINGERS 1,000 ML IV ONE (10:52)
[2020-09-07] MEDS ORDERED: HURRICAINE EXT TUBE (BENZOCAINE) ONE (10:52)
[2020-09-07] MEDS ORDERED: PROPOFOL INJECTION 50 ML IV ONE (10:57)
[2020-09-07] MEDS ORDERED: LACTATED RINGERS 1,000 ML IV STA (10:59)
[2020-09-07] MEDS ORDERED: HURRICAINE EXT TUBE (BENZOCAINE) XX PRN (11:00)
[2020-09-07 11:40] VITALS: BP 100/55
[2020-09-07 11:45] VITALS: BP 100/52
[2020-09-07 11:50] VITALS: BP 136/76
[2020-09-07 11:55] VITALS: BP 125/59
[2020-09-07] MEDS ORDERED: BISACODYL 5 MG (DULCOLAX) TABLET PO SCH (12:00)
--- NOTE | 2020-09-07 12:05 | Progress Note-Post Operative ---
Post-Operative Progess Note Surgeon (s)/Daycare Worker (s) Surgeon HUSSAIN CASTLE DO Daycare Worker: PAUL Mcdermott Pre-Operative Diagnosis Rectal bleed Post-Operative Diagnosis Gastritis Hiatal hernia Interhnal hemorrhoids Raw anal and perineal area Procedure & Operative Findings Date of Procedure 09/07/20 Procedure Performed/Findings PROCEDURE NOTE: After informed consent was obtained, the patient was brought to the endoscopy suite, placed in bed in left lateral decubitus position. She was administered IV sedation by the RN PALLIATIVE who then monitored vitals the entire time, heart rate, blood pressure and pulse ox and the scope was inserted down the mouth through the esophagus into the stomach. On the way down, noted some mild esophagitis, took a picture, pushed into the stomach, pushed past the antrum into the duodenum. Duodenum looked good. Pulled back and did a biopsy of antrum, then retroflexed the scope, saw hiatal hernia, took a picture of this and then pulled the scope into the GE junction, took another picture of the hiatal hernia and then did a biopsy of the GE junction. Pushed the scope back into the stomach, suctioned all the air out of the stomach. At this point pulled the scope up the esophagus and out the mouth. Switched camera, switched gloves, went down below, started the colonoscopy. Only able to push about 20-30cm in and then could not get the bowel to distend. I insufflated with air, tried flushing with water and even moved her onto her back. l still could not get past here. I retroflexed in the rectal vault, saw some minimal internal hemorrhoids and took a picture of this. Also noted some possible colitis, but this looked more like prep artifact. I will order a CT with contrast enema to try and look at colon. I did not see anything in colon to explain rectal bleed. However, her anal area, perineal area antd into the labia looked raw and pale. Maybe slightly excoriated. The patient tolerated the procedure and she recovered in the endoscopy suite. Anesthesia Type IV sedation by RN PALLIATIVE Estimated Blood Loss Estimated blood loss (mL): scant Specimens/Packing Specimens Removed antral bx GE jxn bx HUSSAIN CASTLE DO Sep 07, 2020 12:05
[2020-09-07] MEDS: PANTOPRAZOLE 40 MG (PROTONIX) VIAL IV SCH (12:31)
--- NOTE | 2020-09-07 13:09 | Anesthesia-General Post-Op ---
MAC Patient Condition Mental Status/LOC: Same as Preop Cardiovascular: Satisfactory Nausea/Vomiting: Absent Respiratory: Satisfactory Pain: Controlled Complications: Absent Post Op Complications Complications None Follow Up Care/Instructions Patient Instructions None needed. Anesthesiology Discharge Order Discharge Order Patient is doing well, no complaints, stable vital signs, no apparent adverse anesthesia problems. No complications reported per nursing. SUSANA SANTOYO CRNA Sep 07, 2020 13:09
[2020-09-07] MEDS ORDERED: DIATRIZOATE MEGLUM/SODIUM 37% 120 ML (GASTROGRAFIN) RC ONE (13:15)
[2020-09-07] MEDS ORDERED: HOLD METFORMIN - RECEIVED CONTRAST 20 ML VIAL IV SCH (13:15)
[2020-09-07] MEDS ORDERED: NS 100 ML (IVPB) BAG IV ONE (13:15)
[2020-09-07] MEDS ORDERED: IOHEXOL 350 MG/ML 100 ML (OMNIPAQUE 350) VIAL IV ONE (13:15)
[2020-09-07] MEDS ORDERED: RT-ALBUTEROL SULF 2.5 MG/3 ML PRE-MIX VIAL INH SCH (14:00)
--- NOTE | 2020-09-07 15:25 | Diagnostic Imaging Report ---
TECHNIQUE: All CT scans use one or more of the following dose optimizing techniques: automated exposure control, MA and/or KvP adjustment based on patient size and exam type or iterative reconstruction. INDICATION: Incomplete colonoscopy. FINDINGS: CT scanning was obtained with Gastrografin enema. Patient could only tolerate approximately 700 mL. Patient was scanned in the supine and prone positions. There is a minimal right pleural effusion. A large paraesophageal hernia is incompletely imaged. Almost all of the stomach is above the diaphragm. Duodenal sweep appears normal. Some gallstones are present. The liver, spleen, pancreas, adrenal glands and kidneys are normal. The uterus appears irregular with some cystic changes within the uterus. Ultrasound could be helpful for further evaluation. Colonic diverticuli are present in the sigmoid colon with some narrowing of the colon in this region. No mass is seen. There is some free fluid in the right paracolic gutter extending into the pelvis. Vascular calcifications are present. The aorta is tortuous. No aneurysm is present. IMPRESSION: 1. There is a large paraesophageal hernia with almost all of the stomach above the diaphragm. 2. Cholelithiasis. 3. There is some free fluid in the right side of the abdomen extending into the pelvis. 4. The uterus is markedly abnormal with lobulation and multiple cystic areas. 5. Conic diverticula are present. There is narrowing of the sigmoid colon. Dictated by: Dictated on workstation # [id number]
--- NOTE | 2020-09-07 16:04 | Endoscopy Discharge Instruct ---
Endo Procedure/Findings Findings 1.: Gastritis 2.: Hiatal Hernia 3.: Internal Hemorrhoids 4.: Other Findings (raw skin on frannie-anal area, unable to complete colonoscopy) Discharge Instructions - Activity: You might feel a little sleepy until tomorrow. This is due to the medicine you received to relax you. Until tomorrow, you should: NOT drive a car, operate machinery or power tools. NOT drink any alcoholic beverages. NOT make any important decisions or sign importortant papers. Do not return to work until tomorrow, unless otherwise instructed. Resume previous activities tomorrow. Diet: Start by taking liquids. If you tolerate liquids, advance to solid food. 1.: EGD in 3 years 2.: Colonscopy in 3 years Notify Physician - If you experience excessive bleeding, unusual abdominal pain, fever, or chest pain, contact your doctor immediately. Follow-Up: Reconcile Patient Problems Problems: (1) BRBPR (bright red blood per rectum) (2) Afib Qualifiers: Qualified Codes: I48.21 - Permanent atrial fibrillation (3) HTN (hypertension) Qualifiers: Qualified Codes: I10 - Essential (primary) hypertension (4) COPD (chronic obstructive pulmonary disease) Qualifiers: Qualified Codes: J42 - Unspecified chronic bronchitis HUSSAIN CASTLE DO Sep 07, 2020 16:04
--- NOTE | 2020-09-07 21:17 | Discharge Summary ---
Discharge Summary Hospital Course Was the Problem List Reviewed?: Yes Problems/Dx: (1) BRBPR (bright red blood per rectum) Status: Acute (2) Afib Status: Chronic Qualifiers: Qualified Codes: I48.21 - Permanent atrial fibrillation (3) HTN (hypertension) Status: Chronic Qualifiers: Qualified Codes: I10 - Essential (primary) hypertension (4) COPD (chronic obstructive pulmonary disease) Status: Chronic Qualifiers: Qualified Codes: J42 - Unspecified chronic bronchitis Hospital Course Date of Admission: Sep 04, 2020 at 22:47 Admission Diagnosis : Family Physician/Provider: Date of Discharge: 09/07/20 Discharge Diagnosis: Rectal bleeding with negative scopes, wheezing requiring nebulizer treatments, chronic atrial fibrillation Anticoagulation Hospital Course: Patient had a brief hospital course she was admitted for rectal bleeding anticoagulation was held Dr. Mariscal performed EGD and colonoscopy revealing no source of bleed so patient was restarted all home medication was discharged. Labs and Pending Lab Test: Laboratory Tests 09/06/20 23:20: Influenza Type A (RT-PCR) Not Detected, Influenza Type B (RT-PCR) Not Detected, SARS-CoV-2 RNA (RT-PCR) Not Detected 09/07/20 05:44: White Blood Count 9.4, Red Blood Count 4.39, Hemoglobin 13.8, Hematocrit 42, Mean Corpuscular Volume 95, Mean Corpuscular Hemoglobin 31, Mean Corpuscular Hemoglobin Concent 33, Red Cell Distribution Width 12.9, Platelet Count 253, Mean Platelet Volume 11.1, Immature Granulocyte % (Auto) 0, Neutrophils (%) (Auto) 66, Lymphocytes (%) (Auto) 19, Monocytes (%) (Auto) 9, Eosinophils (%) (Auto) 5, Basophils (%) (Auto) 1, Neutrophils # (Auto) 6.2, Lymphocytes # (Auto) 1.8, Monocytes # (Auto) 0.8, Eosinophils # (Auto) 0.5H, Basophils # (Auto) 0.1, Immature Granulocyte # (Auto) 0.0, Sodium Level 139, Potassium Level 3.6, Chloride Level 109H, Carbon Dioxide Level 22, Anion Gap 8, Blood Urea Nitrogen 5L, Creatinine 0.62, Estimat Glomerular Filtration Rate > 60, BUN/Creatinine Ratio 8, Glucose Level 93, Calcium Level 7.7L, Phosphorus Level 2.5, Magnesium Level 1.8, Total Bilirubin 0.9, Direct Bilirubin 0.4H, Indirect Bilirubin 0.5, Aspartate Amino Transf (AST/SGOT) 18, Alanine Aminotransferase (ALT/SGPT) 12, Alkaline Phosphatase 71, Total Protein 5.4L, Albumin 2.7L Microbiology 09/06/20 MRSA Screen - Final, Complete MRSA not isolated Home Meds Active Reported Symbicort 160-4.5 Mcg Inhaler (Budesonide/Formoterol Fumarate) 10.2 Gm Hfa.aer.ad 2 Puff IH DAILY Ventolin Hfa (Albuterol Sulfate) 1 Puff Puff 2 Puff INH Q4H PRN Hair, Skin & Nails (Multivitamin with Minerals) 1 Each Tablet 1 Each PO DAILY Lisinopril 10 Mg Tablet 10 Mg PO 2100 Cartia Xt (Diltiazem HCl) 120 Mg Cap.er.24h 120 Mg PO BID Digoxin 250 Mcg Tablet 125 Mcg PO , PT TAKES OF A (250MCG) TABLET ON TUESDAYS AND THURSDAYS Digoxin 250 Mcg Tablet 250 Mcg PO SUN,MON,TUE,TUE,SAT Eliquis (Apixaban) 2.5 Mg Tablet 2.5 Mg PO BID Assessment/Pt Instructions [facility] 1 week Discharge Planning: <30 minutes discharge planning Discharge Instructions Discharge Diet: No Restrictions Activity as Tolerated: Yes Discharge Physical Examination Vital Signs Vital Signs Date Time Temp Pulse Resp B/P (MAP) Pulse Ox O2 Delivery O2 Flow Rate FiO2 09/07/20 17:26 09/07/20 15:27 95 Room Air 09/07/20 12:37 35.7 85 20 09/07/20 11:50 10 09/05/20 00:41 21 General Appearance: No Apparent Distress, WD/WN, Chronically ill Respiratory: Wheezing (Subtle) Allergies: Coded Allergies: Penicillins (Verified Allergy, Unknown, 09/04/20) Sulfa (Sulfonamide Antibiotics) (Verified Allergy, Unknown, 09/04/20) Tetanus Vaccines and Toxoid (Verified Allergy, Unknown, 09/04/20) acetaminophen (Verified Allergy, Unknown, 09/04/20) cephalexin (Verified Allergy, Unknown, 09/04/20) ibuprofen (Verified Allergy, Unknown, 09/04/20) warfarin (Verified Allergy, Unknown, 09/04/20) Discharge Summary Date of Admission Sep 04, 2020 at 22:47 Date of Discharge Sep 07, 2020 at 17:00 Discharge Date: Sep 07, 2020 Admission Diagnosis Discharge Diagnosis (1) BRBPR (bright red blood per rectum) Status: Acute (2) Afib Status: Chronic Qualifiers: Qualified Codes: I48.21 - Permanent atrial fibrillation (3) HTN (hypertension) Status: Chronic Qualifiers: Qualified Codes: I10 - Essential (primary) hypertension (4) COPD (chronic obstructive pulmonary disease) Status: Chronic Qualifiers: Qualified Codes: J42 - Unspecified chronic bronchitis TRENT PARRA DO Sep 07, 2020 21:17
== END 2020-09-07 17:00 | disposition home or self-care (01) | DRG 378 ==
LOC: ICU 22:47 → 4TH 09-06 00:45
PROVIDERS: ADMIT Internal Medicine; ATTEND Internal Medicine
PROC: 0DB78ZX Excision of Stomach, Pylorus, Via Natural or Artificial Opening Endoscopic, Diagnostic (ICD-10-PCS; principal; 2020-09-07 11:04)
PROC: 0DB48ZX Excision of Esophagogastric Junction, Via Natural or Artificial Opening Endoscopic, Diagnostic (ICD-10-PCS; 2020-09-07 11:04)
DX: K92.1 Melena (principal); I48.21 Permanent atrial fibrillation; K29.70 Gastritis, unspecified, without bleeding; K44.9 Diaphragmatic hernia without obstruction or gangrene; Z79.01 Long term (current) use of anticoagulants; J44.9 Chronic obstructive pulmonary disease, unspecified; I10 Essential (primary) hypertension; K21.9 Gastro-esophageal reflux disease without esophagitis; Z20.822 Contact with and (suspected) exposure to COVID-19; H54.7 Unspecified visual loss; Z88.0 Allergy status to penicillin; Z88.2 Allergy status to sulfonamides
CPT/HCPCS: 36415; 74177; 80048; 80076; 83735; 84100; 85025; 85027; 87081; 87636; 94640; 94760